=== PATIENT | female | born 1985 | race Two or more races ===

== ENCOUNTER 2017-08-25 08:09 | Emergency (ER) | payer MEDICAID, OTHER ==
[~2017-08-25] VITALS: Ht 167.6 cm; Wt 146.1 kg
[2017-08-25 08:17] VITALS: BP 140/72
== END 2017-08-25 08:53 | disposition home or self-care (01) ==
LOC: ER 08:12
DX: S20.212A Contusion of left front wall of thorax, initial encounter (principal); V43.62XA Car passenger injured in collision with other type car in traffic accident, initial encounter; Y93.89 Activity, other specified; Y92.410 Unspecified street and highway as the place of occurrence of the external cause; Y99.8 Other external cause status
CPT/HCPCS: 71045; 99283; A4606; Z7610

== ENCOUNTER 2021-02-21 17:01 | Emergency (ER) | payer MEDICAID, OTHER ==
[~2021-02-21] VITALS: Ht 162.6 cm; Wt 140.6 kg
[2021-02-21 17:29] VITALS: BP 122/69
[2021-02-21] MEDS ORDERED: NEOM10DR11 LEFT EAR (17:59)
[2021-02-21] MEDS ORDERED: PSEU120T57 PO (17:59)
--- NOTE | 2021-02-21 18:43 | NUR ---
Patient discharged to home in stable condition. Written and verbal after care instructions given. Patient verbalizes understanding of instruction.
== END 2021-02-21 18:39 | disposition home or self-care (01) ==
LOC: ER 17:01
DX: T70.0XXA Otitic barotrauma, initial encounter (principal); H60.92 Unspecified otitis externa, left ear; X58.XXXA Exposure to other specified factors, initial encounter; Y93.89 Activity, other specified; Y92.89 Other specified places as the place of occurrence of the external cause; Y99.8 Other external cause status